=== PATIENT | female | born 1975 | race Caucasian/White ===

== ENCOUNTER 2016-12-07 06:19 | Inpatient (IN) ==
[2016-12-07 06:55] LABS: Apearance,Urine CLEAR (Clear); Bacteria,Urine Occasional /HPF (Few); Bilirubin,Urine Negative (Negative); Blood, Urine Negative (Negative); Glucose,Urine (UA) Negative (Negative); Ketones,Urine Negative (Negative); Mucus,Urine Occasional /LPF (Occasional); Nitrite,Urine Negative (Negative); Protein,Urine Negative; Squamous Epithelial Cell,Urine Occasional /HPF (0-10); Urine Color Yellow (Yellow); Urine Specific Gravity 1.016 (1.001-1.035); Urine Urobilinogen < 2.0 EU/DL (0.2-1.0); WBC,Urine <1 /HPF (0-6)
[2016-12-07] MEDS ORDERED: FAMOTIDINE 20 MG/2 ML VIAL IV ONE (09:21)
[2016-12-07] MEDS ORDERED: ceFAZolin 2,000 MG in PREMIX 1 EACH IV ONE (09:21)
[2016-12-07] MEDS ORDERED: CITRIC ACID/SODIUM CITRATE 30 ML UDCUP PO ONE (09:21)
[2016-12-07] MEDS ORDERED: LACTATED RINGERS 1,000 ML IV SCH (09:30)
[2016-12-07 10:13] LABS: Basophils % 0.3 % (0.0-0.8); Eosinophils % 0.3 % (0.00-10.9); Hematocrit 31.9 VOL% (35.7-47.0); Hemoglobin 10.3 GM/DL (12.0-16.0); Immature Granulocytes % 0.6 %; Immature Granulocytes Absolute 0.07 #; Lymphocytes # 2.2 10*3/uL (1.4-4.0); Mean Corpuscular HGB Conc 32.3 GM/DL (32-36); Mean Corpuscular Hemoglobin 28 PG (27-34); Mean Corpuscular Volume 87.2 FL (87-102); Mean Platelet Volume 11.9 FL (9.6-12.0); Monocytes # 0.9 10*3/uL (0.11-0.8); Monocytes % 7.6 % (1.7-12.7); Neutrophils # 8.8 10*3/uL (1.4-7.4); Neutrophils % 73.2 % (38.7-73.9); Platelet Count 291 T/CUMM (130-400); Red Blood Count 3.66 MC/CUMM (3.8-5.5); Red Cell Distribution Width 14.1 % (9.3-17.3)
[2016-12-07] MEDS ORDERED: LACTATED RINGERS 1,000 ML IV ONE (10:22)
[2016-12-07] MEDS ORDERED: OXYTOCIN/LR 20 UNIT/1,000 ML BAG IV ONE ×2 (10:23→14:23)
[2016-12-07 10:52] LABS: Albumin 2.7 G/DL (3.4-5.0); Bilirubin,Total 0.4 MG/DL (0.2-1.0); Calcium 8.7 MG/DL (8.5-10.1); Osmolality,Calculated 276.4 MOS/KG (273-304); Potassium 4.3 MMOL/L (3.5-5.1); Total Protein 5.8 G/DL (6.4-8.3)
[2016-12-07 14:00] LABS: Apearance,Urine CLEAR (Clear); Bilirubin,Urine Negative (Negative); Blood, Urine Negative (Negative); Glucose,Urine (UA) Negative (Negative); Ketones,Urine 5 mg/dL (Negative); Mucus,Urine Occasional /LPF (Occasional); Nitrite,Urine Negative (Negative); Protein,Urine Negative; RBC,Urine <1 /HPF (0-4); Urine Color Yellow (Yellow); Urine Specific Gravity 1.011 (1.001-1.035); Urine Urobilinogen < 2.0 EU/DL (0.2-1.0); WBC,Urine <1 /HPF (0-6)
[2016-12-07] MEDS ORDERED: ONDANSETRON 4 MG/2 ML VIAL IV PRN (14:23)
[2016-12-07] MEDS ORDERED: RHO(D) IMMUNE GLOBULIN 300 MCG SYRINGE IM ONE (14:23)
[2016-12-07] MEDS ORDERED: ACETAMINOPHEN 325 MG TABLET PO PRN (14:23)
--- NOTE | 2016-12-07 14:26 | Operative Note ---
Date of procedure: 12/07/16 Procedure Preformed: Following informed consent patient taken to the operating room where spinal anesthesia was administered without difficulty. She is prepped and draped in usual fashion placed in dorsal supine position with a leftward tilt. A Pfannenstiel skin incision made with scalpel and carried through to the underlying layer fascia with Bovie. The fascia with incision was excised midlines to lateral with Lucero scissors. The inferior and superior aspects of the fascial incision were grasped with [place] clamps, elevated and the rectus muscles dissected off bluntly. The rectus muscles were then midline and the peritoneum identified and entered with Metzenbaum scissors. The cyst extends purely inferiorly with good visualization of the bladder. Bladder blade was then reinserted and the uterus incised in transverse fashion with scalpel. It was head was atraumatically. The nose mouth bulb suctioned. Cord clamped cut and the handed off to waiting nurses. Cord blood was sent. The placenta was then removed manually and the uterus cleared all clots and debris. The uterine incision with #1 Vicryl in a running locked fashion. A second layer same suture was used to obtain hemostasis. The gutters and cleared of all clots and debris and once again hemostasis will be satisfactory. Therefore all instruments from the abdomen. The fascia was repaired with [0] Vicryl in a running fashion. Skin pleasant and soft jhony. At the end of the procedure all sponge lap needle counts correct 2. Baby and mother in stable condition. Surgeon / Physician: Mena Virgen Post-op diagnosis: same Findings: Liveborn female infant Apgars 8 9 Specimens: none sent Estimated blood loss: other (375 mL) Anesthesia: spinal Disposition: floor
--- NOTE | 2016-12-07 14:27 | Discharge Summary ---
<Mena Virgen - Last Filed: 12/07/16 14:26> Hospital Course - Hospital Course Hospital Course: This is a 41-year-old multiparous female at 38 5/7 weeks with history of hypertension who presented with complaints of contractions. She is a previous C -section 2 who was admitted for repeat section secondary to uterine contractions and hypertension. She desired to go home pm POD#2 Discharge Plan - Discharge Data Disposition: Disch To Home/Self Care - Discharge Medications New oxyCODONE/ACETAMINOPHEN 5-325 [Percocet 5-325] 1 tablet PO Q6H PRN #30 tablet PRN Reason: Abdominal Pain No Action Pnv with Ca,No.71/Iron/FA [ Vitamin Tablet] 1 each PO DAILY Loratadine Tab [Claritin Tab] 10 mg PO DAILY Magnesium Gluconate Tab 1 tablet PO BID Cetirizine HCl [ZyrTEC ODT] 1 tablet PO DAILY - Follow Up or Referral - Forms/Instructions Instructions: Section (DC), Perineal Care (DC), Bleeding (DC) Exam - Constitutional Vitals: Period Temp Pulse Resp BP Sys/Locke Pulse Ox Last 24 Hr 97.1 F-97.6 F 90-100 18-20 110-133/67-84 95-99 DS: Provider Date of admission: 12/07/16 12:14 Primary care physician: . No PCP Attending physician on admission: Mena Virgen MD Consults: 12/07/16 09:21 Consult to Anesthesiology [CONS] Routine Consulting Provider: Reason for Anesthesiology: Pre-op Clearance 12/07/16 14:23 Consult to Wood Heel Finisher [CONS] Routine Consult Wood Heel Finisher: Breast Feeding Discharging clinician: Mena Virgen MD <Zari Simms - Last Filed: 12/09/16 11:24> Diagnosis - Discharge Diagnosis (1) Delivered by section Status: Acute Discharge Plan - Discharge Data Condition at Discharge: Stable Discharge Diet: advance to your usual diet Activity: no lifting Hygiene: may shower Weight Bearing at Discharge: full weight bearing Driving: not until seen by doctor Contact your physician if you experience:: fever over 101, Difficulty voiding, Redness or swelling, Nausea/Vomiting, Shortness of breath, Bleeding, pain uncontrolled by pain medications DS: Provider Expected date of discharge: 12/09/16
--- NOTE | 2016-12-07 14:31 | OB/GYN History & Physical ---
History of Present Illness Chief complaint: hypertnesion complicating History of present illness: Ms. Hooks is a 41 year old female at 38 weeks gestation with h/o HTN admitted for repeat at term Home Medications Medication Instructions Recorded Confirmed Type Loratadine Tab [Claritin Tab] 10 mg PO DAILY 11/14/14 12/07/16 History Pnv with Ca,No.71/Iron/FA 1 each PO DAILY 11/14/14 12/07/16 History [ Vitamin Tablet] Cetirizine HCl [ZyrTEC ODT] 1 tablet PO DAILY 11/15/16 12/07/16 History Magnesium Gluconate Tab 1 tablet PO BID 11/15/16 12/07/16 History oxyCODONE/ACETAMINOPHEN 5-325 1 tablet PO Q6H PRN #30 tablet 12/08/16 Rx [Percocet 5-325] Allergies Allergy/AdvReac Type Severity Reaction Status Date / Time No Known Allergies Allergy Verified 12/07/16 06:39 Medical,Surgical,& Family Hx - Medical History Cardio: History of: Cardiovascular Problems (heart murmur) No history of: Aneurysm, Cardiac Dysrhythmia, Cerebrovascular Disease, Congenital Heart Disease, CHF, CAD, Hypertension, MA, Pacemaker, PVD, Valvular Heart Disease Psychological: No history of: Anxiety Disorders, ADHD, Behavior Problems, Bipolar Disorder, Depression, Previous Suicide Attempt, Psychiatric/Substance Abuse Tx, Schizophrenia, Violent Behavior, Psychiatric Problems Neurology: No history of: Brain Aneurysm, Cerebral Hemorrhage, Cerebrovascular Accident , Cerebral Palsy, Dementia, Migraine, Multiple Sclerosis, Parkinson's Disease, Peripheral Neuropathy, Seizures, TIA, Vertigo, Neurologocal Cancer HEENT: No history of: Ear Problem, Eye Problem, Dental Problems, Glaucoma, Oral Cancer, HEENT Problems Endocrine: No history of: Diabetes Mellitus (IDDM), Diabetes Mellitus (NIDDM), Dyslipidemia, Endocrine Problems Rheumatology: No history of;: Myasthenia Gravis, Psoriasis, Sjogrens, Systemic Lupus Erythematosus Respiratory: No history of: Respiratory Problems Renal: No history of: Renal Failure, Renal Problems Genitourinary: No history of: Kidney Stones, Recurring Urinary Tract Infections, Problems Gastrointestinal: No history of: Bowel Obstruction, Clostridium Difficile, Crohn's Disease, Diverticulitis/ Diverticulosis, Esophageal Varices, GERD, Gastrointestinal Bleed , Hemorrhoids, Hematochezia, Hepatitis, Liver Problems, Pancreatitis, Polyps, Ulcerative Colitis, Gastrointestinal Cancer, GI Problems Musculoskeletal: No history of: Amputation, Musculoskeletal Problems Hematology: No history of: Anemia, Blood Transfusion Reaction, Bleeding Problems, Clotting Problems, Sickle Cell Disease, Hematologic Cancer, Blood Disorders Reproductive: History of: Abnormal Pap Smear, Sexually Transmitted Disorders ( HPV, condoloma) No history of: Breast Cancer, Endometriosis, Ectopic , Ovarian Cysts , Complication, Reproductive Cancer, Reproductive Problems Other: No history of: Anesthesia Reactions, Anaphylaxis, Cancer, Eczema, HIV, Malignant Hyperthermia, MRSA, Vancomycin-Resistant Enterococci, Skin Problems, Miscellaneous Medical Problems - Surgical History Cardiac Surgeries: Patient Denies: Femoral-Popliteal Bypass Graft, Cardiac Catheterization, Cardiac Surgery, Carotid Endarterectomy, Internal Defibrillator, Vascular Access Devices Thoracic Surgeries: Patient denies;: Kidney (Renal Surgery), Lithotripsy, Nephrectomy, Organ Transplant, Lobectomy Neurologic Surgeries: Patient denies: Brain Aneurysm, Cerebral Hemorrhage, Neurologic Surgery HEENT Surgeries: Surgical HX of: Tonsilectomy & Adenoidectomy Patient denies: Carotid Endarterectomy, Eye Surgery, Thyroid Surgery Abdominal Surgeries: Patient denies: Abdominal Surgery, Appendectomy, Cholecystectomy, Colonoscopy , Gastric Bypass Surgery, EGD, Hernia Repair, Splenectomy Reproductive Surgeries: Surgical HX of;: Section, Dilation and Curettage (AB), Gynecologic Surgery Patient denies;: Cystoscopy, Genitourinary Surgery, Hysterectomy, Tubal Ligation Orthopedic Surgeries: Patient denies;: Implanted Devices, Orthopedic Surgery, Spinal Surgery, Total Hip Replacement, Total Knee Replacement - Family History Family History: Reports;: Family Cancer (g'father,g'mother,sister), Family Diabetes (g'father) Denies;: Family Anesthesia Reaction, Family Heart Disease, Family Hematology , Family Hypertension, Family Psychiatric Problems, Family Stroke, Additional Family History - Social History Smoking Status: Never smoker Frequency of Alcohol Use: None Type of Drug Use: None 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 - Constitutional Vitals: Vital Signs Temp Pulse Resp BP 12/07/16 11:36 98.1 F 83 20 123/66 12/07/16 08:00 98.3 F 80 22 144/75 General appearance: no acute distress - Head Head exam: Present: normocephalic - Neck Neck exam: Present: normal inspection - Respiratory Respiratory exam: Present: clear to auscultation bilaterally - Cardiovascular Cardiovascular exam: Present: regular rate and rhythm - GI/Abdominal GI/Abdominal exam: Present: normal bowel sounds, soft, other (gravid) - Extremities Exam Extremities exam: Present: edema (+1 bilateral) - Back Exam Back exam: Present: normal inspection - Neurological Exam Neurological exam: Present: alert, oriented X3 - Psychiatric Psychiatric exam: Present: normal affect, normal mood - Skin Skin exam: Present: normal color, warm Assessment and Plan (1) 38 weeks gestation of Status: Acute (2) Hypertension affecting Status: Acute Assessment and plan: Patient admitted for repeat (3) Multiparity Status: Acute Assessment and plan: Plan for sterilization (4) Previous section Status: Acute Results - Labs CBC & BMP: 12/08/16 06:32 12/07/16 09:34 Quality Measures - VTE Contraindication to Pharmacological VTE Prophylaxis: High Risk of Bleeding
[2016-12-07] MEDS ORDERED: fentaNYL 100 MCG/2 ML VIAL ONE (14:42)
[2016-12-07] MEDS ORDERED: MIDAZOLAM 2 MG/2 ML VIAL ONE (14:43)
[2016-12-07] MEDS ORDERED: MORPHINE 10 MG/10 ML VIAL ONE (14:48)
[2016-12-07] MEDS ORDERED: ONDANSETRON 4 MG/2 ML VIAL ONE (14:49)
--- NOTE | 2016-12-07 15:26 | Anesthesia Post-Op ---
Anesthesia Post OP - Post Ansesthetic Evaluation Patient seen in post op: Yes Resp: within normal limits CV: within normal limits Mental: within normal limits Temp: within normal limits [id number]: within normal limits Nausea and Vomiting: within normal limits Pain: within normal limits
[2016-12-07] MEDS: HYDROmorphone 2 MG/1 ML VIAL IV PRN ×3 (15:49→22:43)
[2016-12-07] MEDS: DOCUSATE SODIUM 100 MG CAPSULE PO SCH (22:22)
[2016-12-07 23:01] LABS: Basophils % 0.2 % (0.0-0.8); Eosinophils % 0.1 % (0.00-10.9); Hematocrit 28.5 VOL% (35.7-47.0); Hemoglobin 9.2 GM/DL (12.0-16.0); Immature Granulocytes % 0.5 %; Immature Granulocytes Absolute 0.07 #; Lymphocytes % 15.1 % (21.3-54.2); Mean Corpuscular HGB Conc 32.3 GM/DL (32-36); Mean Corpuscular Hemoglobin 28 PG (27-34); Mean Corpuscular Volume 87.2 FL (87-102); Mean Platelet Volume 11.4 FL (9.6-12.0); Monocytes # 0.9 10*3/uL (0.11-0.8); Monocytes % 6.9 % (1.7-12.7); Neutrophils # 10.4 10*3/uL (1.4-7.4); Neutrophils % 77.2 % (38.7-73.9); Platelet Count 260 T/CUMM (130-400); Red Blood Count 3.27 MC/CUMM (3.8-5.5); White Blood Count 13.5 T/CUMM (4-12)
[2016-12-08] MEDS: LACTATED RINGERS 1,000 ML IV SCH ×2 (00:30→02:17)
[2016-12-08] MEDS: oxyCODONE/ACETAMINOPHEN 5-325 MG TABLET PO PRN ×3 (03:30→20:50)
[2016-12-08 06:58] LABS: Basophils % 0.3 % (0.0-0.8); Eosinophils % 0.1 % (0.00-10.9); Hematocrit 26.9 VOL% (35.7-47.0); Hemoglobin 8.6 GM/DL (12.0-16.0); Immature Granulocytes % 0.4 %; Immature Granulocytes Absolute 0.05 #; Lymphocytes # 1.6 10*3/uL (1.4-4.0); Lymphocytes % 14.1 % (21.3-54.2); Mean Corpuscular Hemoglobin 28 PG (27-34); Mean Corpuscular Volume 86.8 FL (87-102); Mean Platelet Volume 11.8 FL (9.6-12.0); Neutrophils # 8.8 10*3/uL (1.4-7.4); Neutrophils % 76.1 % (38.7-73.9); Platelet Count 247 T/CUMM (130-400); Red Cell Distribution Width 14.1 % (9.3-17.3); White Blood Count 11.5 T/CUMM (4-12)
[2016-12-08] MEDS: IBUPROFEN 800 MG TABLET PO PRN ×2 (09:11→18:51)
--- NOTE | 2016-12-08 10:03 | OB/GYN Progress Note ---
Assessment and Plan (1) Delivered by section Status: Acute Assessment and plan: POD#1 s/p repeat and BTL. 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 Her pain is under control. She is not passing flatus but she is tolerating a regular diet. She is voiding without any problems and her bleeding is light. Exam ENERGY TRADING ANALYST - Constitutional Vitals: Vital Signs Temp Pulse Resp BP Pulse Ox 12/08/16 07:41 98 F 91 H 20 109/63 96 12/08/16 03:30 97.5 F L 98 H 20 104/78 96 12/08/16 00:00 97.7 F 84 20 111/61 98 12/07/16 21:00 76 20 123/75 99 12/07/16 20:45 98.5 F 77 19 120/68 99 12/07/16 20:00 98.0 F 83 20 115/70 12/07/16 19:45 98.0 F 86 20 117/75 12/07/16 18:45 81 20 127/78 12/07/16 18:15 80 20 130/80 12/07/16 17:45 98.1 F 84 20 138/76 12/07/16 11:36 98.1 F 83 20 123/66 General appearance: normal weight, no acute distress - Respiratory Respiratory exam: Absent: accessory muscle use - Cardiovascular Cardiovascular exam: Present: regular rate and rhythm - GI/Abdominal GI/Abdominal exam: Present: soft, other (dressing clean and dry). Absent: guarding, rebound - Extremities Exam Extremities exam: Absent: calf tenderness - Neurological Exam Neurological exam: Present: alert, oriented X3 - Psychiatric Psychiatric exam: Present: normal affect, normal mood - Skin Skin exam: Present: normal color Results - Labs CBC & BMP: 12/08/16 06:32 12/07/16 09:34
[2016-12-08] MEDS: DOCUSATE SODIUM 100 MG CAPSULE PO SCH ×2 (10:23→20:49)
[2016-12-08] MEDS: MULTIVITAMIN (PRENATAL) TABLET PO SCH (10:24)
[2016-12-08] MEDS: MAGNESIUM HYDROXIDE SUSP 30 ML UDCUP PO PRN ×2 (10:24→20:50)
[2016-12-08] MEDS: SIMETHICONE CHEW 80 MG TABLET PO PRN (16:12)
[2016-12-09] MEDS: SIMETHICONE CHEW 80 MG TABLET PO PRN (00:10)
[2016-12-09] MEDS: oxyCODONE/ACETAMINOPHEN 5-325 MG TABLET PO PRN ×2 (01:59→11:25)
[2016-12-09] MEDS: IBUPROFEN 800 MG TABLET PO PRN (06:20)
[2016-12-09 08:00] VITALS: BP 132/80
[2016-12-09] MEDS: DOCUSATE SODIUM 100 MG CAPSULE PO SCH (08:53)
[2016-12-09] MEDS: MULTIVITAMIN (PRENATAL) TABLET PO SCH (08:54)
[2016-12-09] MEDS ORDERED: DIPH/TET/ACEL PERT BOOSTER VACCINE 0.5 ML VIAL IM ONE (11:21)
--- NOTE | 2016-12-09 11:22 | OB/GYN Progress Note ---
Assessment and Plan (1) Delivered by section Status: Acute Assessment and plan: POD#2 s/p repeat and BTL. continue routine routine Post op and PP care. f/u [address] 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 She is passing flatus tolerating food voiding well. Her pain is under control with pain medication and her bleeding is also under control. She is ready to go home. Exam TICKET TAKER FERRYBOAT - Constitutional Vitals: Vital Signs Temp Pulse Resp BP Pulse Ox 12/09/16 07:59 97.1 F L 90 20 132/80 95 12/09/16 04:00 97.6 F 91 H 18 110/71 95 12/09/16 00:10 97.1 F L 91 H 20 125/71 98 12/08/16 20:00 97.2 F L 100 H 20 122/70 99 12/08/16 16:00 97.6 F 99 H 20 119/67 97 12/08/16 11:47 97.2 F L 94 H 20 133/84 98 General appearance: normal weight, no acute distress - Respiratory Respiratory exam: Absent: accessory muscle use - Cardiovascular Cardiovascular exam: Present: regular rate and rhythm - GI/Abdominal GI/Abdominal exam: Present: soft. Absent: guarding, rebound - Extremities Exam Extremities exam: Absent: calf tenderness - Neurological Exam Neurological exam: Present: alert, oriented X3 - Psychiatric Psychiatric exam: Present: normal affect, normal mood - Skin Skin exam: Present: normal color Results - Labs CBC & BMP: 12/08/16 06:32 12/07/16 09:34
== END 2016-12-09 13:10 | disposition home or self-care (01) | DRG 766 ==
LOC: N.LDOUT 06:19 → N.LD 06:20 → N.OB 17:47
PROVIDERS: ADMIT Obstetrics & Gynecology; ATTEND Obstetrics & Gynecology